=== PATIENT | female | born 1995 | race Caucasian/White ===

== ENCOUNTER 2017-06-30 20:09 | Emergency (ER) | payer MEDICAID ==
[~2017-06-30] VITALS: Ht 162.6 cm; Wt 90.7 kg
[2017-06-30 20:10] VITALS: BP_SYST 121
--- NOTE | 2017-06-30 20:45 | NUR ---
Patient reports that she has been having left jaw pain since last night. Pain 9/10. Swelling noted at lower jaw. Patient is also 10 weeks with vaginal spotting and cramping for the last 2 1/2 weeks . Patient reports that they feel like "contraction cramps and not menstrual cramps". Patient states that she is not followed by a OB at this time because of insurance issues. Not having any cramping at this time. No other complaints/injuries per patient or as noted. Will continue to monitor.
[2017-06-30] MEDS ORDERED: NACL 0.9% 1,000 ML IV ONE (20:49)
--- NOTE | 2017-06-30 20:50 | NUR ---
ER at bedside examining patient.
[2017-06-30 21:04] LABS: BILIRUBIN,URINE NEGATIVE (NEGATIVE); BLOOD, URINE NEGATIVE (NEGATIVE); CLARITY/URINE SL CLOUDY (CLEAR); COLOR,URINE YELLOW (YELLOW); GLUCOSE,URINE NEGATIVE (NEGATIVE); KETONES,URINE TRACE (NEGATIVE); LEUKOCYTE ESTERASE ,URINE NEGATIVE (NEGATIVE); NITRITE, URINE NEGATIVE (NEGATIVE); PROTEIN URINE TRACE (NEGATIVE); UROBILINOGEN,URINE 0.2 (0.2-1.0)
[2017-06-30 21:07] LABS: BASOPHILS % (AUTO) 0.3 % (0.0-2.0); EOSINOPHILS # (AUTO) 0.1 K/uL (0.0-0.4); EOSINOPHILS % (AUTO) 0.8 % (0.0-4.0); HEMATOCRIT 41.9 % (36-48); HEMOGLOBIN 13.4 g/dL (12.0-16.0); LYMPHOCYTES # (AUTO) 1.8 K/uL (1.0-5.5); LYMPHOCYTES % (AUTO) 17.3 % (20.5-51.5); MEAN CORPUSCULAR HEMOGLOBIN 25 pg (27-31); MEAN CORPUSCULAR HGB CONC 32 % (32-36); MEAN CORPUSCULAR VOLUME 79 fL (79.0-98.0); MONOCYTES # (AUTO) 0.7 K/uL (0.0-1.0); MONOCYTES % (AUTO) 6.5 % (1.7-9.3); NEUTROPHILS % (AUTO) 75.1 % (40.0-70.0); PLATELET COUNT (AUTO) 239 K/uL (130-430); RED CELL DISTRIBUTION WIDTH 14.8 % (9.0-15.0); WHITE BLOOD COUNT (AUTO) 10.6 K/uL (4.8-10.8)
[2017-06-30 21:20] LABS: CALCIUM 9.7 mg/dL (8.4-11.0); CREATININE 0.72 mg/dL (0.55-1.30); POTASSIUM 4.2 mmol/L (3.5-5.1)
[2017-06-30 21:40] LABS: BACTERIA,URINE MODERATE /HPF (None Seen); RBC,URINE NONE SEEN /HPF (0-3)
[2017-06-30 21:41] LABS: MUCUS,URINE None Seen /LPF (None Seen)
[2017-06-30 21:45] LABS: ALBUMIN 3.5 g/dL (3.4-4.8); TOTAL BILIRUBIN 0.8 mg/dL (0.0-1.0)
[2017-06-30] MEDS ORDERED: BUPIVACAINE /PF 0.25% 30 ML VIAL INJ ONE (21:45)
[2017-06-30] MEDS ORDERED: SODIUM BICARBONATE 4% (NEUT) 5 ML VIAL INJ ONE (21:45)
--- NOTE | 2017-06-30 21:50 | NUR ---
Accompanied Dr. Marie at bedside for inferior alveolar nerve block.
--- NOTE | 2017-06-30 22:00 | NUR ---
Patient sent to ultrasoud with Kandy.
--- NOTE | 2017-06-30 22:15 | NUR ---
Patient returned from Ultrasound
[2017-06-30 23:46] VITALS: BP_SYST 126
--- NOTE | 2017-06-30 23:46 | NUR ---
Patient given written and verbal discharge instructions and verbalizes understanding. ER MD discussed with patient the results and treatment provided. Patient in stable condition. ID arm band removed. IV catheter removed intact and dressing applied, no active bleeding. Rx of Macrobid given. Patient educated on pain management and to follow up with PMD in 2-3 days. Pain Scale 0/10 Opportunity for questions provided and answered.
== END 2017-06-30 23:46 | disposition home or self-care (01) ==
LOC: SED 20:09
DX: O20.0 Threatened abortion (principal); O23.31 Infections of other parts of urinary tract in pregnancy, first trimester; K05.10 Chronic gingivitis, plaque induced; K02.9 Dental caries, unspecified; Z3A.10 10 weeks gestation of pregnancy
CPT/HCPCS: 36415; 76801; 80053; 81000; 84702; 85025; 85610; 85730; 86900; 86901; 87086; 96360; 99285; J3490; J7030

== ENCOUNTER 2021-04-30 23:23 | Emergency (ER) | payer MEDICAID, OTHER ==
[~2021-04-30] VITALS: Ht 157.5 cm; Wt 145.1 kg
[2021-04-30 23:30] VITALS: BP_SYST 126
--- NOTE | 2021-04-30 23:38 | NUR ---
Patient to ER bed 3 to gown for evaluation. Side rails up. Report given to Mel PISANO.
--- NOTE | 2021-04-30 23:45 | NUR ---
PATIENT AAOX4 AND AMBULATORY C/O SORE THROAT WITH BILATERAL BLISTERS TO THROAT X 2 MONTHS. PER PATIENT HER PMD SHE HAS "STREP THROAT" AND WAS GIVEN ABTX AND WAS FINISHED. CURRENTLY STATING 5/10 ON THE PAIN SCALE. VSS. DENIES ANY SWELLING TO THROAT OR DIFFICULTY BREATHING.
--- NOTE | 2021-05-01 00:27 | NUR ---
VISHAL GNA AT BEDSIDE FOR EVALUATION.
--- NOTE | 2021-05-01 00:45 | NUR ---
STREP COLLECTED AND SENT TO LAB FOR ANALYSIS.
--- NOTE | 2021-05-01 00:59 | NUR ---
URINE SPECIMEN COLLECTED AND HCG NEGATIVE.
[2021-05-01 02:00] VITALS: BP_SYST 126
--- NOTE | 2021-05-01 02:00 | NUR ---
Patient given written and verbal discharge instructions and verbalizes understanding. DR. MALIK RODGERS MD discussed with patient the results and treatment provided. Patient in stable condition. ID arm band removed. Patient educated on pain management and to follow up with PMD. Pain Scale 0/10. Opportunity for questions provided and answered. Medication side effect fact sheet provided.
== END 2021-05-01 02:00 | disposition home or self-care (01) ==
LOC: SED 23:23
DX: J02.9 Acute pharyngitis, unspecified (principal)
CPT/HCPCS: 36415; 81025; 86403; 87081; 99283